=== PATIENT | female | born 1945 | race Caucasian/White ===

== ENCOUNTER → 2018-02-05 | Outpatient (CLI) | payer MEDICARE, OTHER ==
[~2018-02-05] MED LIST: ASCO100019 PO; BIOTIN PO; CA C1TAB60 PO; CYCL1DRO EACHEYE; ESTR0.5T PO; HA JOINT PO; KRIL1CAP PO; LEVO100T5 PO; LEVOTHYROXINE PO; MULT-717 PO; PROG100C16 PO; RED600TA PO; SKIN PO; SOLI10TA2 PO; UBID100C10 PO
== END | disposition home or self-care (01) ==
LOC: STAR 08:13
PROVIDERS: ATTEND Internal Medicine
DX: Z01.818 Encounter for other preprocedural examination (principal); D12.6 Benign neoplasm of colon, unspecified
CPT/HCPCS: 93005

== ENCOUNTER 2018-02-11 12:15 | Day surgery (SDC) | payer MEDICARE, OTHER ==
[~2018-02-11] VITALS: Ht 162.6 cm; Wt 61.4 kg
[2018-02-11 12:51] VITALS: BP 145/78
[2018-02-11] MEDS ORDERED: LACTATED RINGERS 1,000 ML IV SCH (13:00)
[2018-02-11] MEDS ORDERED: PROPOFOL 10 MG/ML, 20ML ONE (13:30)
[2018-02-11] MEDS ORDERED: OXYcodone 5 MG/5 ML ORAL.SOL UDC PO PRN (14:30)
[2018-02-11] MEDS ORDERED: ONDANSETRON 2MG/ML, 2ML IV PRN (14:30)
[2018-02-11] MEDS ORDERED: ONDANSETRON ODT 8 MG PO PRN (14:30)
[2018-02-11] MEDS ORDERED: FENTANYL PF 100 MCG/2ML IV PRN (14:30)
[2018-02-11] MEDS ORDERED: ACETAMINOPHEN 325 MG TABLET PO PRN (14:30)
== END 2018-02-11 15:40 | disposition home or self-care (01) ==
LOC: OUT 12:15
PROVIDERS: ATTEND Internal Medicine
DX: Z12.11 Encounter for screening for malignant neoplasm of colon (principal); K63.5 Polyp of colon; M19.90 Unspecified osteoarthritis, unspecified site; F15.90 Other stimulant use, unspecified, uncomplicated; Z79.899 Other long term (current) drug therapy; Z72.89 Other problems related to lifestyle; Z96.651 Presence of right artificial knee joint; Z90.49 Acquired absence of other specified parts of digestive tract; Z82.49 Family history of ischemic heart disease and other diseases of the circulatory system; Z80.1 Family history of malignant neoplasm of trachea, bronchus and lung
CPT/HCPCS: 45380; 88305; J2704; J7120